=== PATIENT | female | born 2005 | race Caucasian/White ===

== ENCOUNTER 2024-01-28 08:27 | Emergency (ER) | payer SELFPAY ==
[~2024-01-28] VITALS: Ht 182.9 cm; Wt 101.8 kg
[2024-01-28 08:35] VITALS: BP 118/67; PULSE 118; RESP 18; TEMP 100.1; O2SAT 91
[2024-01-28] MEDS: ONDANSETRON 4 MG ODT PO ONE (09:29)
[2024-01-28] MEDS: KETOROLAC 30 MG/ML VIAL IM ONE (09:31)
[2024-01-28 09:34] LABS: BASOPHILS % (AUTO) 0.2 % (0.0-2.0); EOSINOPHILS # (AUTO) 0.1 K/uL (0-0.4); EOSINOPHILS % (AUTO) 0.5 % (0.0-4.0); HEMATOCRIT 38.5 % (36-48); HEMOGLOBIN 12.7 g/dL (12.0-16.0); LYMPHOCYTES # (AUTO) 1.5 K/uL (2.5-16.5); LYMPHOCYTES % (AUTO) 12.3 % (20.5-51.1); MEAN CORPUSCULAR HEMOGLOBIN 29 pg (27-31); MEAN CORPUSCULAR HGB CONC 33 g/dL (33-37); MEAN CORPUSCULAR VOLUME 86.8 fL (80-94); MONOCYTES # (AUTO) 1.3 K/uL (0.8-1.0); MONOCYTES % (AUTO) 11.2 % (1.7-9.3); NEUTROPHILS % (AUTO) 75.8 % (42.2-75.2); PLATELET COUNT (AUTO) 300 K/uL (140-450); RED BLOOD CELL COUNT(AUTO) 4.43 MIL/uL (4.20-5.40); RED CELL DISTRIBUTION WIDTH 12.8 % (11.6-13.7); WHITE BLOOD COUNT (AUTO) 11.9 K/uL (4.5-11.0)
[2024-01-28 09:48] LABS: APPEARANCE,URINE CLOUDY (CLEAR); BILIRUBIN,URINE NEGATIVE (NEGATIVE); BLOOD, URINE NEGATIVE (NEGATIVE); COLOR,URINE YELLOW (YELLOW); LEUKOCYTE ESTERASE ,URINE 2+ (NEGATIVE); NITRITE, URINE POSITIVE (NEGATIVE); PROTEIN,URINE NEGATIVE (NEGATIVE); UGLUCOSE NEGATIVE (NEGATIVE); UROBILINOGEN,URINE 0.2 EU/dL (0.2 - 1)
[2024-01-28 09:54] LABS: ANION GAP 12.3 (8-16); CALCIUM 8.7 mg/dL (8.5-10.1); CARBON DIOXIDE 27.3 mmol/L (21-32); CREATININE 0.9 mg/dL (0.6-1.3); POTASSIUM 3.6 mmol/L (3.5-5.1)
[2024-01-28] MEDS ORDERED: cefTRIAXone 2,000 MG VIAL ONE (10:17)
[2024-01-28 10:19] LABS: BACTERIA,URINE >30 (MANY) /HPF (None Seen); RBC,URINE 0-5 /HPF (0-5); WBC,URINE >25 (MANY) /HPF (0-5)
[2024-01-28 10:20] LABS: SQUAMOUS EPITHELIAL CELL,UR 0-3 (FEW) /LPF (0-3 (FEW))
[2024-01-28] MEDS: cefTRIAXone 2,000 MG in DEXTROSE 5% 100 ML IV ONE (10:32)
[2024-01-28] MEDS ORDERED: ONDA-188 SL (10:38)
[2024-01-28] MEDS ORDERED: CEPH-588 PO (10:38)
[2024-01-28] MEDS ORDERED: TRAM-748 PO (10:38)
[2024-01-28] MEDS: MORPHINE SULFATE 4 MG/ML SYR IVP ONE (11:04)
[2024-01-28 11:49] VITALS: BP 103/59; PULSE 76; RESP 18; TEMP 37.83636; O2SAT 100
== END 2024-01-28 11:49 | disposition home or self-care (01) ==
LOC: MED 08:27
DX: N10 Acute pyelonephritis (principal); Z79.899 Other long term (current) drug therapy
CPT/HCPCS: 36415; 80048; 81001; 81025; 85025; 87040; 87086; 96365; 96372; 96375; 99284; J0696; J1885; J2270; Q0162; 87186

== ENCOUNTER 2024-03-13 09:29 | Emergency (ER) | payer OTHER ==
[~2024-03-13] VITALS: Ht 182.9 cm; Wt 99.8 kg
[~2024-03-13 09:29] MED LIST: CEPH-588 PO; ONDA-188 SL; TRAM-748 PO
[2024-03-13 09:37] VITALS: BP 142/86; PULSE 92; RESP 16; TEMP 98; O2SAT 100
[2024-03-13] MEDS ORDERED: IBUP-2213 PO (10:50)
[2024-03-13] MEDS: IBUPROFEN 800 MG TAB PO ONE (11:02)
[2024-03-13 11:38] VITALS: BP 135/82; PULSE 87; RESP 16; TEMP 98; O2SAT 100
== END 2024-03-13 11:38 | disposition home or self-care (01) ==
LOC: MED 09:29
DX: S93.401A Sprain of unspecified ligament of right ankle, initial encounter (principal); Z79.899 Other long term (current) drug therapy; X50.1XXA Overexertion from prolonged static or awkward postures, initial encounter; Y93.89 Activity, other specified; Y92.89 Other specified places as the place of occurrence of the external cause; Y99.8 Other external cause status
CPT/HCPCS: 73610; 73620; 99284; Q0092